=== PATIENT | female | born 1950 | race Caucasian/White ===

== ENCOUNTER 2017-03-20 01:08 | Day surgery (SDC) | payer BC ==
[~2017-03-20] VITALS: Ht 167.6 cm; Wt 98.0 kg
[~2017-03-20 01:08] MED LIST: ASPI81TA94 PO; BISO1TAB79 PO; LISI20TA29 PO; OMEP-137 PO; POTA99TA6 PO; [UNRECOGNIZED DRUG - CODE] PO
--- NOTE | 2017-03-20 05:39 | Short(Outpt) Discharge Summary ---
Discharge Summary Reason for Hosp/Final Diag: (1) Encounter for screening colonoscopy Hospital Course & Plan: multiple small colon polyps Departure Discharge to: Home Discharge Instructions Home Meds Reported Medications Omeprazole (OMEPRAZOLE) 20 Mg Tablet.dr, 20 MG PO QDAY, TAB 03/13/17 Potassium Gluconate (POTASSIUM) 99 Mg Tablet, 99 MG PO QDAY 03/13/17 Bisoprolol Fumarate/Hctz (BISOPROLOL-HCTZ 10-6.25 MG TAB) 1 Each Tablet, 1 EACH PO QDAY, TAB 03/13/17 Aspirin (ASPIRIN) 81 Mg Tab.chew, 81 MG PO QDAY, TAB.CHEW 03/13/17 Diltiazem Hcl (CARTIA XT) 300 Mg Cap.er.24h, 300 MG PO QDAY 03/13/17 Lisinopril (LISINOPRIL) 20 Mg Tablet, 20 MG PO BID, TAB 03/13/17 Diet: Regular Activity: As Tolerated ELEUTERIO OWENS MD Mar 20, 2017 05:39
--- NOTE | 2017-03-20 05:39 | Post Operative Progress Note ---
Post Operative Progress Note Date: Mar 20, 2017 Time: 08:39 Surgeon: navjot Anesthesia: mejía Pre-Op Diagnosis: screening colonoscopy Post-Op Diagnosis: 2 mm polyp hepatic flexure, 2 mm polyp at 50 cm 4 mm polyp at45 cm 2 mm polyp at 35 cm Procedure(s): colonoscopy polypectomy ELEUTERIO OWENS MD Mar 20, 2017 05:39
[2017-03-20] MEDS ORDERED: PROPOFOL EMUL(*) 10MG/ML 20 ML 20 ML ONE ×2 (07:13→08:26)
[2017-03-20 07:21] VITALS: BP 179/88
[2017-03-20] MEDS ORDERED: LIDOCAINE/SOD BICARB 8.4% SYR ID ONE (07:35)
[2017-03-20] MEDS ORDERED: NORMOSOL R SOLN(*) 1000 ML BAG 1,000 ML IV PRN (07:35)
[2017-03-20] MEDS ORDERED: MIDAZOLAM 2 MG/2 ML VIAL IVP PRN (07:35)
[2017-03-20 08:39] VITALS: BP 152/61
[2017-03-20 08:45] VITALS: BP 148/82
[2017-03-20 09:00] VITALS: BP 153/88
[2017-03-20 09:05] VITALS: BP 151/87
[2017-03-20 09:10] VITALS: BP 140/86
--- NOTE | 2017-03-20 15:38 | OPERATIVE REPORT 1 ---
EVENT DATE: March 20, 2017 SURGEON: Darrin Nevarez MD ANESTHESIOLOGIST: Alonzo Moody MD ANESTHESIA: Sedation. PREOPERATIVE DIAGNOSIS Screening colonoscopy. POSTOPERATIVE DIAGNOSES 1. A 2 mm polyp at the hepatic flexure. 2. A 2 mm polyp at 50 cm. 3. A 4 mm polyp at 40 cm. 4. A 2 mm polyp at 35 cm. PROCEDURE PERFORMED Colonoscopy with polypectomy. DESCRIPTION OF PROCEDURE The patient was placed in the left lateral decubitus position and given intravenous sedation. Rectal exam was unremarkable. The flexible colonoscope was inserted and advanced to the cecum. She had an excellent bowel prep. Ileocecal valve and base of the cecum were identified. The scope was slowly withdrawn. Care was taken to look behind the haustral folds. No abnormalities were noted in the cecum or right colon. At the hepatic flexure, she had a small , 2 mm polyp. This was removed with the cold cup. The transverse colon was normal. At 50 cm, she had a 2 mm polyp that was removed with the cold cup. She had a slightly larger one, maybe 4 mm sessile polyp at 40 cm. This was removed with the cold cup. At 35 cm, there was another small, 2 mm projection. This was removed with the cold cup. The rest of the sigmoid colon was normal. The rectum was normal. The scope was retroflexed. That appeared to be normal. She will need a repeat colonoscopy in five years if these clipper and turner to be adenomatous polyps. REGINO
== END 2017-03-20 09:19 | disposition home or self-care (01) ==
LOC: OR 01:08
PROVIDERS: ATTEND Surgery
DX: Z12.11 Encounter for screening for malignant neoplasm of colon (principal); D12.6 Benign neoplasm of colon, unspecified; K63.5 Polyp of colon
CPT/HCPCS: 00811; 45380; 88305; J2704

== ENCOUNTER → 2018-06-30 | Outpatient (CLI) | payer MEDICARE, OTHER ==
--- NOTE | 2018-07-01 08:27 | RADIOLOGY IMAGING REPORT ---
FACILITY: [facility] PATIENT NAME: IAN RAMÍREZ : [id number] MR: [id number] V: [id number] EXAM DATE: [id number] ORDERING PHYSICIAN: NHI SMITH TECHNOLOGIST: Nikki No PROCEDURE:BILATERAL DIGITAL SCREENING MAMMOGRAM WITH CAD ASSISTED INTERPRETATION & 3D TOMOSYNTHESIS COMPARISON:Prior mammograms 08/29/11. INDICATIONS:screening FINDINGS: The breasts are almost entirely fatty. The parenchymal pattern has remained stable allowing for difference in mammographic technique & patient positioning. DIAGNOSTIC CATEGORY 1--NEGATIVE. RECOMMENDATIONS: ROUTINE MAMMOGRAM AND CLINICAL EVALUATION. IMPRESSION: BIRADS 1: Negative. No significant abnormality is seen. Dictated by: Nisreen Stanley M.D. on 06/30/2018 at 15:58 Transcribed by: ELEAZAR on 07/01/2018 at 7:50 Approved by: Nisreen Stanley M.D. on 07/01/2018 at 8:26 [facility]
== END ==
LOC: MAMO 06-25 13:51
PROVIDERS: ATTEND Physician Assistant
DX: Z12.31 Encounter for screening mammogram for malignant neoplasm of breast (principal)
CPT/HCPCS: 77063; 77067